=== PATIENT | female | born 1965 | race Caucasian/White ===

== ENCOUNTER 2016-03-08 22:33 | Emergency (ER) | payer MEDICAID ==
[2014-06-06 12:59] VITALS: BMI 18.8
[~2016-03-08 22:33] MED LIST: CARAFATE1 G PO; CARBATROL100 MG; CARBATROL100 MG PO; HYDROCODONE-APA1 TAB; PHENERGAN25 M1; PRILOSEC20 MG PO; PROZAC20 MG PO
[2016-03-08 22:55] LABS: APPEARANCE CLEAR (CLEAR); BILIRUBIN NEGATIVE (NEGATIVE); COLOR YELLOW (YELLOW); GLUCOSE NEGATIVE (NEGATIVE); KETONE NEGATIVE (NEGATIVE); LEUKOCYTE ESTERASE NEGATIVE (NEGATIVE); NITRITE NEGATIVE (NEGATIVE); PROTEIN NEGATIVE (NEGATIVE); SPECIFIC GRAVITY 1.015 (1.005-1.020); UROBILINOGEN NORMAL (NORMAL)
[2016-03-08 22:57] LABS: BACTERIA FEW /hpf (NONE SEEN); EPITHELIAL CELLS 0-5 /hpf (0-5); GRANULAR CAST OCC /lpf (NONE SEEN); WHITE CELLS - URINE 0-5 /hpf (0-5)
[2016-03-08 23:08] LABS: BASOPHILS 0.6 % (0.0-2.0); EOSINOPHILS 4.9 % (0-7); HEMATOCRIT 46.1 % (36.0-48.0); HEMOGLOBIN 15.2 g/dL (12-16); IMMATURE GRANULOCYTES 0.3 % (0-5); LYMPHOCYTES 22.7 % (15-50); MCH 32.5 pg (26.0-34.0); MCV 98.7 fL (80.0-100.0); MONOCYTES 6.9 % (2-11); NEUTROPHILS 64.6 % (40-80); RBC 4.67 10x6/uL (4.00-5.40); RDW 15.5 % (11.5-14.5); WBC 9.8 10x3/uL (4.8-10.8)
[2016-03-08 23:12] LABS: PLATELET COUNT 333 10x3/uL (130-400)
[2016-03-08 23:23] LABS: ALBUMIN 3.5 g/dL (3.4-5.0); ALKALINE PHOSPHATASE 116 U/L (46-116); ALT (SGPT) 20 U/L (10-68); AMYLASE - SERUM 82 U/L (25-115); BILIRUBIN - TOTAL 0.12 mg/dL (0.2-1.3); CALC OSMOLALITY 282 mosm/kg (275-300); CALCIUM 8.9 mg/dL (8.5-10.1); CARBON DIOXIDE 33.5 mmol/L (21.0-32.0); CHLORIDE - SERUM 100 mmol/L (98-107); CREATININE - SERUM 0.8 mg/dL (0.6-1.3); GLUCOSE 119 mg/dL (74-106); LIPASE 171 U/L (73-393); POTASSIUM - SERUM 3.9 mmol/L (3.5-5.1); PROTEIN - SERUM 6.9 g/dL (6.4-8.2); SODIUM 141 mmol/L (136-145); UREA NITROGEN 15 mg/dL (7-18); eGFR NON AFRICAN AMERICAN 80 mL/min (90-120)
== END 2016-03-09 00:30 | disposition home or self-care (01) ==
LOC: D.ER 22:33
PROVIDERS: Family Medicine
DX: R10.13 Epigastric pain (principal); K27.9 Peptic ulcer, site unspecified, unspecified as acute or chronic, without hemorrhage or perforation; G40.909 Epilepsy, unspecified, not intractable, without status epilepticus; F17.200 Nicotine dependence, unspecified, uncomplicated; R00.0 Tachycardia, unspecified

== ENCOUNTER 2017-07-10 19:54 | Inpatient (IN) | payer MEDICAID ==
[~2017-07-10] VITALS: Ht 170.2 cm; Wt 54.6 kg
--- NOTE | ~2017-07-10 | HP ---
PATIENT: ELISABETH EL MEDICAL RECORD: [id number] ACCOUNT: [id number] LOCATION:[facility] [id number] : 65 ADMISSION DATE: 07/10/17 HISTORY AND PHYSICAL EXAMINATION DATE OF ADMISSION: 07/10/2017. CHIEF COMPLAINT: Nausea, vomiting, vomiting dark blood, abdominal pain. HISTORY OF PRESENT ILLNESS: The patient is a 51-year-old female who is cared for by Dr. Rodriguez. She presents having no PCP, is admitted to my service on unassigned medicine. The patient states that she has been taking excessive amount of Excedrin for migraine headaches. She also has a history of a seizure disorder. She states she has had numerous GI bleeds in the past, apparently she had a partial gastrectomy approximately 3 years ago at [facility]. The patient has had a history of duodenal ulcers in the past. She denies any dark colored stools. PAST MEDICAL HISTORY: Significant that she has had 1 section . She has had a history of seizure disorders, also has spinal stenosis, chronic pain. ALLERGIES: PHENOBARBITAL, PHENERGAN, TORADOL, TRAMADOL, MORPHINE. MEDICATIONS: Carafate 1 g q.a.c. and at bedtime, Nexium 40 mg daily, gabapentin 300 mg 3 times a day, promethazine p.r.n., carbamazepine 200 mg t.i.d., Robaxin 500 mg q.8 hours p.r.n. muscle spasm, amitriptyline 100 mg p.o. at bedtime. HABITS: The patient states she is a smoker, 1 pack per day. She denies any ethanol use. She states that she has smoked pot. FAMILY HISTORY: Father at 50, cerebral aneurysm. Her mother at 50 with cerebral aneurysm. Father of skin cancer in his 50s. SOCIAL HISTORY: The patient is , unemployed. REVIEW OF SYSTEMS: GENERAL: She denies any headaches, seizure, or syncope. She denies any change in visual or auditory acuity. PULMONARY: She denies any shortness of breath, cough, congestion, history of TB, asthma, or bronchitis. CARDIOVASCULAR: She has had no chest pain, palpitation, PND, or orthopnea. GASTROINTESTINAL: No chronic nausea, vomiting, melena, or hematochezia. GENITOURINARY: No urgency, frequency, or dysuria. PHYSICAL EXAMINATION: VITAL SIGNS: In the Emergency Room, the patient's pulse is 143, respirations 20, blood pressure 108/78, O2 sat was 98% on room air. HEENT: Head is normocephalic. No lesions. Ears: TMs clear. Eyes: Pupils equal, round, and reactive to light. Extraocular movements are intact. Her nasal cavity, oral cavity, and oropharynx clear. NECK: Supple. There is no adenopathy. HEART: Had a regular rate. LUNGS: Clear. HISTORY AND PHYSICAL [id number] ELISABETH EL LABORATORY DATA: Initially her white count is 10.7, hemoglobin 9.9, hematocrit is 33.5, platelets are 393. Sodium 142, potassium 3.8, chloride 108, BUN is 24, creatinine 0.6. PT is 13, INR 1.02. LFTs were normal except for an alkaline phosphatase elevated at 165. ASSESSMENT: Upper gastrointestinal bleed, history of having duodenal ulcers in the past, prior abdominal surgery for bleeding ulcers, seizure disorder, chronic back pain. PLAN: The patient will be admitted. She will be placed on Protonix 40 mg IV hour, also Carafate 1 gram q.a.c. and at bedtime. We will check serial H&Hs q.6 hours, transfuse as needed. Also, GI consultation will be obtained. TRANSINT:[id number] Voice Confirmation ID: [id number] DOCUMENT ID: [id number] SERVANDO LOPEZ MD at 0911 CC: [id number] DICTATION DATE: 07/11/17 1025 PARK SUPERINTENDENT: 07/11/17 [address] [place] [address]
--- NOTE | ~2017-07-10 | DS ---
PATIENT:ELISABETH EL :65 MEDICAL RECORD: [id number] DISCHARGE SUMMARY ADMISSION DATE: 07/10/17 DISCHARGE DATE: 07/14/17 DATE OF ADMISSION: 07/10/2017 DATE OF DISCHARGE: 07/14/2017 CONDITION ON DISCHARGE: Improved. ADMITTING DIAGNOSES: Upper gastrointestinal bleed having duodenal ulcers, prior abdominal surgery for bleeding ulcers, seizure disorder, chronic back pain. DISCHARGE DIAGNOSES: Gastrointestinal hemorrhage, acute duodenal ulcer with hemorrhage, acute posthemorrhagic anemia, ulcer of the esophagus without bleeding, acute gastritis, epilepsy. HOSPITAL COURSE: This patient is a 51-year-old female who is cared for by Dr. Rodriguez. She had presented to [facility]. She was admitted to my service on unassigned medicine. The patient had been taken an excessive amount of Excedrin for migraine headaches. She had a history of having seizure disorder, numerous GI bleeds in the past. Apparently, had had a partial gastrectomy at [facility] 3 years prior to her admission. The patient also had a history of having duodenal ulcers. PHYSICAL EXAMINATION: VITAL SIGNS: In the Emergency Room, the patient's pulse 143, her blood pressure 108/78, respirations 20, her O2 saturation was 98%. HEENT: Unremarkable. NECK: Supple. There is no adenopathy. HEART: Had a regular rate without murmurs, gallops or rubs. LUNGS: Clear. ABDOMEN: Soft. She had mid epigastric tenderness. LABORATORY DATA: White count 10.7, hemoglobin 9.9, hematocrit is 33.5, platelets are 393. Sodium was 142, potassium 3.8, chloride 108, BUN 24, creatinine 0.6. Her INR was 1.02. LFTs were normal except alkaline phosphatase elevated at 165. Patient was admitted, placed on Protonix IV as well as Carafate. GI consultation was obtained. The patient had an EGD by Dr. Aly. On the , the patient did undergo an EGD. The EGD revealed a 5 cm gastric ulcer in the stomach body, oozing at the periphery, injected with 2 cc of 1:10,000 epinephrine at multiple sites fairly good response, also with a second ulcer approximately 4 cm within the duodenal bulb along the posterior wall in an area of suture. This ulcer was also actively oozing and was injected with 1 cc of 1:10,000 epinephrine with good response, unable to Hemoclip due to the ulceration or the photocoagulation due to ulcer depth and risk of perforation. Also, the patient had a small distal nonhemorrhagic esophageal ulcer and a mild erosive gastritis, did not advance the scope into the second portion of the duodenum. The patient was returned to ICU on a Protonix drip, Carafate slurry, no aspirin, no Excedrin. Surgical consultation was obtained as well. The patient continued to do well, having no further bleed. On the , the patient was doing well. She was started on a liquid diet, which she tolerated quite well. Dr. Aly did believe the patient was stable and could be discharged on DISCHARGE SUMMARY REPORT [id number] ELISABETH EL the , her white count was 10, hemoglobin was 10.8, hematocrit 36, her platelet was 262. She had a sodium of 140, potassium 4.2, chloride 105, CO2 was 27.7, BUN was 13, creatinine 0.5. The patient was therefore discharged. She was discharged on carbamazepine 200 mg p.o. t.i.d., Phenergan 25 mg p.o. q.6 hours p.r.n. nausea, Carafate 1 g q.a.c. and at bedtime, Neurontin 300 mg p.o. t.i.d., Elavil 100 mg p.o. at bedtime, Pepcid 40 mg b.i.d. She was placed on Protonix 40 mg p.o. b.i.d., Klonopin 1 mg p.o. b.i.d. DISCHARGE INSTRUCTIONS: The patient was discharged home. She was to follow up with her PCP in 1 week. She would avoid aspirin as well as any nonsteroidal anti-inflammatory. TRANSINT:[id number] Voice Confirmation ID: [id number] DOCUMENT ID: [id number] SERVANDO LOPEZ MD at 0742 CC: [id number] DICTATION DATE: 08/09/17 1123 PHOTOGRAPHIC ARTIST: 08/09/17 1816 DIS IN 07/14/17 [address] [place] [address]
[~2017-07-10 19:54] MED LIST changes: +CARBATROL 200200 MG PO; -CARBATROL100 MG PO; -PHENERGAN25 M1; +PHENERGAN25 M1 PO
[2017-07-10 21:12] LABS: BASOPHILS 0.4 % (0-2); EOSINOPHILS 2.8 % (0-7); HEMATOCRIT 33.5 % (36.0-48.0); HEMOGLOBIN 9.9 g/dL (12-16); IMMATURE GRANULOCYTES 0.7 % (0-5); LYMPHOCYTES 20.9 % (15-50); MCH 24.3 pg (26.0-34.0); MCHC 29.6 g/dL (31.0-37.0); MCV 82.1 fL (80.0-100.0); MEAN PLATELET VOLUME 9.4 fL (7.4-10.4); MONOCYTES 10.4 % (2-11); NEUTROPHILS 64.8 % (40-80); PLATELET COUNT 393 10x3/uL (130-400); RBC 4.08 10x6/uL (4.00-5.40); RDW 20.3 % (11.5-14.5); WBC 10.7 10x3/uL (4.8-10.8)
[2017-07-10 22:39] LABS: INR 1.02 (0.85-1.17)
[2017-07-10 22:42] LABS: ALBUMIN 3.2 g/dL (3.4-5.0); ALKALINE PHOSPHATASE 165 U/L (46-116); ALT (SGPT) 25 U/L (10-68); CALC OSMOLALITY 283 mosm/kg (275-300); CALCIUM 9.2 mg/dL (8.5-10.1); CARBON DIOXIDE 30.6 mmol/L (21.0-32.0); CHLORIDE - SERUM 99 mmol/L (98-107); CREATININE - SERUM 0.8 mg/dL (0.6-1.3); GLUCOSE 113 mg/dL (74-106); POTASSIUM - SERUM 3.5 mmol/L (3.5-5.1); PROTEIN - SERUM 7.9 g/dL (6.4-8.2); SODIUM 138 mmol/L (136-145); UREA NITROGEN 33 mg/dL (7-18); eGFR NON AFRICAN AMERICAN 80 mL/min (90-120)
[2017-07-11] VITALS (19 sets, daily range): BP systolic 100–127; BP diastolic 27–70; Ht 170.2 cm; Wt 54.6 kg
[2017-07-11 07:21] LABS: BASOPHILS 0.6 % (0-2); EOSINOPHILS 4.3 % (0-7); HEMATOCRIT 29.1 % (36.0-48.0); HEMOGLOBIN 8.6 g/dL (12-16); IMMATURE GRANULOCYTES 0.5 % (0-5); LYMPHOCYTES 21.3 % (15-50); MCH 24.6 pg (26.0-34.0); MCHC 29.6 g/dL (31.0-37.0); MCV 83.4 fL (80.0-100.0); MEAN PLATELET VOLUME 8.6 fL (7.4-10.4); MONOCYTES 10.6 % (2-11); NEUTROPHILS 62.7 % (40-80); RBC 3.49 10x6/uL (4.00-5.40); RDW 19.3 % (11.5-14.5)
[2017-07-11 07:24] LABS: PLATELET COUNT 256 10x3/uL (130-400); WBC 6.4 10x3/uL (4.8-10.8)
[2017-07-11 07:28] LABS: CALC OSMOLALITY 285 mosm/kg (275-300); CALCIUM 8.2 mg/dL (8.5-10.1); CARBON DIOXIDE 27.7 mmol/L (21.0-32.0); CHLORIDE - SERUM 108 mmol/L (98-107); CREATININE - SERUM 0.6 mg/dL (0.6-1.3); GLUCOSE 89 mg/dL (74-106); POTASSIUM - SERUM 3.8 mmol/L (3.5-5.1); SODIUM 142 mmol/L (136-145); eGFR NON AFRICAN AMERICAN > 90 mL/min (90-120)
[2017-07-11 07:29] LABS: UREA NITROGEN 24 mg/dL (7-18)
[2017-07-11] MEDS ORDERED: NEURONTIN 300300 MG PO (13:00)
[2017-07-11] MEDS ORDERED: ROBAXIN500 MG PO (13:00)
[2017-07-11] MEDS ORDERED: AMITRIPTYLINE100 MG PO (13:01)
[2017-07-11 14:01] LABS: HEMOGLOBIN 10.3 g/dL (12-16)
[2017-07-11 14:02] LABS: HEMATOCRIT 35.4 % (36.0-48.0)
[2017-07-11 19:23] LABS: HEMATOCRIT 29.7 % (36.0-48.0); HEMOGLOBIN 8.8 g/dL (12-16)
[2017-07-12] VITALS (11 sets, daily range): BP systolic 101–182; BP diastolic 42–86
[2017-07-12 02:03] LABS: HEMOGLOBIN 9.7 g/dL (12-16)
[2017-07-12 04:35] LABS: BASOPHILS 0.5 % (0-2); EOSINOPHILS 4.4 % (0-7); HEMATOCRIT 31.9 % (36.0-48.0); HEMOGLOBIN 9.2 g/dL (12-16); IMMATURE GRANULOCYTES 0.4 % (0-5); LYMPHOCYTES 32.2 % (15-50); MCH 24.6 pg (26.0-34.0); MCHC 28.8 g/dL (31.0-37.0); MCV 85.3 fL (80.0-100.0); MEAN PLATELET VOLUME 9.2 fL (7.4-10.4); MONOCYTES 8.4 % (2-11); NEUTROPHILS 54.1 % (40-80); PLATELET COUNT 280 10x3/uL (130-400); RBC 3.74 10x6/uL (4.00-5.40); RDW 19.4 % (11.5-14.5); WBC 7.5 10x3/uL (4.8-10.8)
[2017-07-12 05:19] LABS: CALC OSMOLALITY 278 mosm/kg (275-300); CALCIUM 7.9 mg/dL (8.5-10.1); CARBON DIOXIDE 23.2 mmol/L (21.0-32.0); CHLORIDE - SERUM 105 mmol/L (98-107); CREATININE - SERUM 0.5 mg/dL (0.6-1.3); GLUCOSE 89 mg/dL (74-106); POTASSIUM - SERUM 3.9 mmol/L (3.5-5.1); SODIUM 141 mmol/L (136-145); UREA NITROGEN 9 mg/dL (7-18); eGFR NON AFRICAN AMERICAN > 90 mL/min (90-120)
[2017-07-12 18:31] LABS: HEMATOCRIT 32.5 % (36.0-48.0); HEMOGLOBIN 9.6 g/dL (12-16)
[2017-07-13 00:49] LABS: HEMATOCRIT 31.4 % (36.0-48.0)
[2017-07-13 04:30] VITALS: BP 97/31
[2017-07-13 07:00] LABS: BASOPHILS 0.2 % (0-2); EOSINOPHILS 6.2 % (0-7); HEMATOCRIT 30.2 % (36.0-48.0); HEMOGLOBIN 8.7 g/dL (12-16); IMMATURE GRANULOCYTES 0.3 % (0-5); LYMPHOCYTES 15.4 % (15-50); MCH 24.6 pg (26.0-34.0); MCHC 28.8 g/dL (31.0-37.0); MCV 85.6 fL (80.0-100.0); MEAN PLATELET VOLUME 8.7 fL (7.4-10.4); MONOCYTES 7.3 % (2-11); NEUTROPHILS 70.6 % (40-80); PLATELET COUNT 248 10x3/uL (130-400); RBC 3.53 10x6/uL (4.00-5.40); RDW 19.3 % (11.5-14.5); WBC 8.8 10x3/uL (4.8-10.8)
[2017-07-13 07:14] LABS: CALC OSMOLALITY 281 mosm/kg (275-300); CALCIUM 7.6 mg/dL (8.5-10.1); CARBON DIOXIDE 27.8 mmol/L (21.0-32.0); CHLORIDE - SERUM 106 mmol/L (98-107); CREATININE - SERUM 0.6 mg/dL (0.6-1.3); GLUCOSE 96 mg/dL (74-106); SODIUM 142 mmol/L (136-145); UREA NITROGEN 10 mg/dL (7-18); eGFR NON AFRICAN AMERICAN > 90 mL/min (90-120)
[2017-07-13 07:24] LABS: POTASSIUM - SERUM 3.3 mmol/L (3.5-5.1)
[2017-07-13 09:08] VITALS: BP 96/51
[2017-07-13 12:45] VITALS: BP 101/56
[2017-07-13 13:15] LABS: HEMATOCRIT 29.5 % (36.0-48.0); HEMOGLOBIN 8.6 g/dL (12-16)
[2017-07-13 16:29] VITALS: BP 102/61
[2017-07-13 18:20] LABS: HEMATOCRIT 29.5 % (36.0-48.0); HEMOGLOBIN 8.5 g/dL (12-16)
[2017-07-13 19:50] VITALS: BP 107/52
[2017-07-13 22:22] VITALS: BP 106/52
[2017-07-14 05:54] LABS: BASOPHILS 0.2 % (0-2); HEMOGLOBIN 10.8 g/dL (12-16); IMMATURE GRANULOCYTES 0.1 % (0-5); LYMPHOCYTES 12.9 % (15-50); MCH 25.7 pg (26.0-34.0); MCV 85.5 fL (80.0-100.0); MONOCYTES 7.7 % (2-11); NEUTROPHILS 73.1 % (40-80); PLATELET COUNT 262 10x3/uL (130-400); RBC 4.21 10x6/uL (4.00-5.40); RDW 18.9 % (11.5-14.5)
[2017-07-14 06:19] LABS: CALCIUM 7.9 mg/dL (8.5-10.1); CARBON DIOXIDE 27.7 mmol/L (21.0-32.0); CHLORIDE - SERUM 105 mmol/L (98-107); CREATININE - SERUM 0.5 mg/dL (0.6-1.3); GLUCOSE 93 mg/dL (74-106); SODIUM 140 mmol/L (136-145); eGFR NON AFRICAN AMERICAN > 90 mL/min (90-120)
[2017-07-14 06:32] LABS: CALC OSMOLALITY 278 mosm/kg (275-300); POTASSIUM - SERUM 4.2 mmol/L (3.5-5.1); UREA NITROGEN 13 mg/dL (7-18)
[2017-07-14] MEDS ORDERED: PROTONIX40 MG PO (07:15)
[2017-07-14 08:17] VITALS: BP 98/45
[2017-07-14] MEDS ORDERED: NEXIUM20 MG PO (09:05)
[2017-07-14] MEDS ORDERED: KLONOPIN1 MG PO (09:06)
[2017-07-14] MEDS ORDERED: PEPCID40 MG PO (09:13)
== END 2017-07-14 10:53 | disposition home or self-care (01) | DRG 378 ==
LOC: D.ER 19:54 → D.ICU 23:09 → D.M2 23:09 → D.ICU 07-11 12:28 → D.MS 07-12 19:45
PROVIDERS: Family Medicine; Internal Medicine Gastroenterology
PROC: 0W3P8ZZ Control Bleeding in Gastrointestinal Tract, Via Natural or Artificial Opening Endoscopic (ICD-10-PCS; 2017-07-11)
PROC: 3E0G8GC Introduction of Other Therapeutic Substance into Upper GI, Via Natural or Artificial Opening Endoscopic (ICD-10-PCS; principal; 2017-07-11 11:45)
DX: K26.0 Acute duodenal ulcer with hemorrhage (principal); D62 Acute posthemorrhagic anemia; K22.10 Ulcer of esophagus without bleeding; K29.01 Acute gastritis with bleeding; K25.0 Acute gastric ulcer with hemorrhage; G40.909 Epilepsy, unspecified, not intractable, without status epilepticus; Z72.0 Tobacco use